=== PATIENT | female | born 1945 | race Caucasian/White ===

== ENCOUNTER 2018-07-15 10:11 | Inpatient (IN) | END 2018-07-16 14:10 | DRG 470 ==

== ENCOUNTER 2018-12-14 05:45 | Observation (INO) | payer MEDICARE, OTHER ==
[2018-12-14] VITALS (23 sets, daily range): BP systolic 118–163; BP diastolic 54–74; PULSE 52–71; RESP 12–18
[~2018-12-14] VITALS: Ht 152.4 cm; Wt 73.8 kg
[~2018-12-14 05:45] MED LIST: LOSA50TA14 PO
[2018-12-14] MEDS ORDERED: LANSOPRAZOLE 30 MG CAP PO ONE (06:00)
[2018-12-14] MEDS ORDERED: ACETAMINOPHEN 500 MG TAB PO ONE (06:00)
[2018-12-14] MEDS ORDERED: TRANEXAMIC ACID 1GM/100ML(PMX) 100 ML INTRA-OP X1 IVPB ONE (06:00)
[2018-12-14] MEDS ORDERED: DEXAMETHASONE 4 MG/ML 1 ML INJ IV ONE (06:00)
[2018-12-14] MEDS ORDERED: ONDANSETRON 4 MG INJ IV ONE (06:00)
[2018-12-14] MEDS ORDERED: TRANEXAMIC ACID 1GM/100ML(PMX) 100 ML PRE-OP X1 IVPB ONE (06:00)
[2018-12-14] MEDS ORDERED: CEFAZOLIN 1 GM/50 ML (PMX) 50 ML IVPB ONE (06:00)
[2018-12-14] MEDS ORDERED: oxyCODONE (CR) 10 MG TAB [oxyCONTIN] PO ONE (06:00)
[2018-12-14] MEDS ORDERED: LACTATED RINGER'S 1,000 ML IV* SCH (06:00)
--- NOTE | 2018-12-14 06:46 | HPN ---
Date/Time of Note Date/Time of Note DATE: 12/14/18 TIME: 06:46 Interval H&P Admission Note Pt. seen H&P reviewed: No system changes BERNARD LINARES MD December 14, 2018 06:46
[2018-12-14] MEDS ORDERED: POLYMYXIN B 500000 UNIT INJ ONE (06:54)
[2018-12-14] MEDS ORDERED: LIDOCAINE 2% (SDV) 5 ML INJ ONE (07:00)
[2018-12-14] MEDS ORDERED: HIP PAIN COCKTAIL VANCO INJ SCH ×7 (07:00)
[2018-12-14] MEDS ORDERED: BACITRACIN 50000 UNITS INJ ONE (07:08)
--- NOTE | 2018-12-14 07:16 | PREAC ---
Date/Time of Note Date/Time of Note DATE: 12/14/18 TIME: 07:14 Anesthesia Eval and Record Evaluation Time Pre-Procedure Interview DATE: 12/14/18 TIME: 07:14 Age 73 Sex female NPO: 8 hrs Preoperative diagnosis right knee osteoarthritis Planned procedure right total knee replacement Past Medical History Past Medical History: Includes Cardio: HTN Musculoskeletal: Osteoarthritis Surgery & Anesthesia Issues No known issue Meds Anticoagulation: No Beta Alice within 24 hr: No Reason Beta Alice not given: Pt. not on B-Alice Reported Medications Losartan Potassium* (Losartan Potassium*) 50 Mg Tablet, 50 MG PO DAILY, TAB 07/13/18 Current Medications Ropivacaine/ Morphine Sulfate/ Clonidine/ Epinephrine/ Ketorolac Tromethamine/ Vancomycin HCl/ Sodium Chloride INTRA-OP INJ ; Start 12/14/18 at 07:00 Lactated Ringer's 1,000 ml @ 125 mls/hr Q8H IV* Last administered on 12/14/18at 06:59; Admin Dose 125 MLS/HR; Start 12/14/18 at 06:00; Stop 12/14/18 at 13:59 Acetaminophen 100 ml @ 400 mls/hr PRE-OP ONCE IVPB ; Start 12/14/18 at 07:30; Stop 12/14/18 at 07:44 Meds reviewed: Yes Allergies Coded Allergies: No Known Allergy (Unverified , 12/14/18) Allergies Reviewed: Yes Labs/Studies Labs Reviewed: Reviewed by anesthesiologist test: N/A Studies: ECG, CXR Pre-procedure Exam Airway: Adequate mouth opening, Adequate thyromental dist Mallampati: Mallampati II Teeth: Normal Lung: Normal Heart: Normal ASA Physical Status ASA physical status: 2 Emergency: None Planned Anesthetic Neuraxial: Spinal Planned Pain Management Parenteral pain med Pre-operative Attestations Prior to commencing anesthesia and surgery, the patient was re-evaluated, there was verification of: *The patient's identity *The results of appropriate recent lab work and preoperative vital signs *The above evaluation not changing prior to induction *Anesthetic plan, risk benefits, alternative and complications discussed with patient/family; questions answered; patient/family understands, accepts and wishes to proceed. JAY LOVETT December 14, 2018 07:15
[2018-12-14] MEDS ORDERED: ACETAMINOPHEN 1000MG/100ML IV 100 ML IVPB ONE (07:30)
[2018-12-14] MEDS ORDERED: MIDAZOLAM 1 MG/ML 2 ML INJ ONE (07:30)
[2018-12-14] MEDS ORDERED: TRANEXAMIC ACID 1GM/100ML(PMX) 100 ML ONE ×2 (07:44→08:07)
[2018-12-14] MEDS ORDERED: PROPOFOL 20 ML ONE (08:07)
[2018-12-14] MEDS ORDERED: ROCURONIUM 50 MG INJ ONE (08:07)
[2018-12-14] MEDS ORDERED: ONDANSETRON 4 MG INJ ONE (08:08)
[2018-12-14] MEDS ORDERED: DEXAMETHASONE 4 MG/ML 5 ML INJ ONE (08:08)
[2018-12-14] MEDS ORDERED: NEOSTIGMINE 3 MG/3 ML SYRINGE ONE (09:19)
[2018-12-14] MEDS ORDERED: GLYCOPYRROLATE 0.4 MG INJ ONE (09:19)
--- NOTE | 2018-12-14 09:43 | SIPON ---
Date/Time of Note Date/Time of Note DATE: 12/14/18 TIME: 09:42 Operative Report Preoperative Diagnosis Right Knee Osteoarthritis Postoperative Diagnosis Same Operation/Procedure Performed Right Total Knee Arthroplasty Surgeon Sherif Linares MD visitor use assistant Josh Salazar Second assist: EDWIGE MCDONALD Anesthesia: spinal, epidural Estimated blood loss: 250 - 300 ml's Transfusion Required none Specimen bone Grafts/Implants none Complications none SHERIF LINARES MD December 14, 2018 09:43
--- NOTE | 2018-12-14 09:49 | OPR ---
Date/Time of Note Date/Time of Note DATE: 12/14/18 TIME: 09:46 Operative Report Free Text/Dictation DATE OF OPERATION: December 14, 2018 SURGEON: Bernard Linares MD STITCH BURNISHER: Josh CALVILLO STITCH BURNISHER: JESSICA Melo PREOPERATIVE DIAGNOSIS: Right knee osteoarthritis. POSTOPERATIVE DIAGNOSIS: Right knee osteoarthritis. PROCEDURES PERFORMED: Right total knee arthroplasty, CPT code 23752. ANESTHESIOLOGIST: Dr. Harden ANESTHESIA: Spinal. ESTIMATED BLOOD LOSS: 300 mL. COMPLICATIONS: None. SPECIMENS: Resected bone. DISPOSITION: PACU in stable condition. TOURNIQUET TIME: 60 minutes at 250 mmHg. IMPLANT USED: [employer]hew size 3 Awa tibial baseplate, size 4 posterior stabilized Oxinium femur, size 12 high flexion polyethylene, size 32 mm patella. INDICATION FOR PROCEDURE: This is an 73-year-old female with end-stage osteoarthritis of the right knee who had failed nonoperative management. Risks, benefits, alternatives of surgical intervention were discussed with the patient and informed consent was obtained. The risks of surgery include but are not limited to infection, deep venous thrombosis, pulmonary embolism, damage to nerves and blood vessels, numbness around incision site, stiffness of knee, need for total knee manipulation under anesthesia, need for blood transfuion, heart attack, stroke, risks associated with anesthesia, implant loosening, wear of prosthesis, need for revision surgery, and . DESCRIPTION OF PROCEDURE: The patient was met in the preoperative suite. The correct operative site was confirmed and marked. The patient was then brought into operating room. After induction of anesthesia, the patient was placed in the supine position on the operating room table. A tourniquet was applied to right upper thigh. The right lower extremity was prepped and draped in the usual sterile fashion. Before starting, a timeout was taken to identify the correct operative site and confirm preoperative antibiotics consisting of 1 g of IV Ancef, along with 1 g of tranexamic acid were administered. At this point, the right leg was elevated and exsanguinated with an Esmarch and tourniquet was then insufflated for the above noted time. A midline incision was made and median parapatellar arthrotomy was then completed. The lateral patellar retinacular ligaments were released. A sleeve of tissue was released from the medial proximal tibia. The cruciate ligaments and the menisci were then excised. At this point, the custom distal femur cutting block was then pinned and 9.5 mm was resected from the distal femur. The 4-in-1 cutting block, size 4 was then placed. An sharan wing was used to confirm that notching of the anterior cortex of the femur would not occur. The anterior and posterior condylar cuts were completed followed by the anterior and posterior chamfer cuts. The osteophytes were then removed with a rongeur. At this point, the tibia was subluxed anteriorly. Appropriate retractors were placed. The custom tibial cutting block was then pinned. The drop was used to ensure the correct alignment. Approximately 11 mm was resected off the lateral tibial plateau and 9 mm off the medial tibial plateau. Osteophytes were then removed. At this point, the flexion extension gaps were checked with a 9 mm gap gas meter checker and noted to be loose in both. Next, trial 4 standard femur was then pinned and the box cut was then completed. The tibia was then subluxed anteriorly and measured to size 3. The tibial tray was then pinned and a keel was then punched. The trial components were placed with a 12 mm polyethylene and noted to have full extension and greater than 120 degrees of flexion. The patella was then subluxed laterally and sized to 19 mm. Approximately, 5 mm was resected from the patella. The patellar was sized to 32 mm. The button was placed and noted to have excellent patellar tracking. The trial components were removed. All bony surfaces were pulse lavaged and dried. The appropriate size components were then cemented and the knee was held in extension with a 12 mm trial polyethylene until the cement cured. Once the cement had cured, the trial polyethylene was removed and the appropriate size polyethylene was then placed. The tranexamic acid was redosed. The cocktail was then injected. The extensor mechanism was closed using #1 Stratafix and the subcutaneous tissue with 2-0 Vicryl and the skin with 4-0 Monocryl. Steri-Strips were applied along with a sterile dressing. There were no complications. The patient was transferred to PACU in stable condition. POSTOPERATIVE CARE: The patient will be weightbearing as tolerated. The patient will work with physical therapy, and will receive two additional doses of IV antibiotics along with aspirin 81 mg p.o. b.i.d. for 6 weeks. Upon discharge, patient will follow up in my office within 2 weeks postoperatively. BERNARD LIANRES MD December 14, 2018 09:49
--- NOTE | 2018-12-14 09:58 | PAC ---
Date/Time of Note Date/Time of Note DATE: 12/14/18 TIME: 09:57 Post-Anesthesia Notes Post-Anesthesia Note Last documented vital signs temp 97.9 bp 115/67 p 76 r 15 Activity: WNL Respiratory function: WNL Cardiovascular function: WNL Mental status: Baseline Pain reasonably controlled: Yes Hydration appropriate: Yes Nausea/Vomiting absent: Yes JAY LOVETT December 14, 2018 09:58
[2018-12-14] MEDS ORDERED: DIPHENHYDRAMINE 50 MG INJ IV PRN (10:00)
[2018-12-14] MEDS ORDERED: DOCUSATE SODIUM 100 MG CAP PO ONE (10:00)
[2018-12-14] MEDS ORDERED: NALOXONE (0.4 MG/ML) INJ IV PRN (10:00)
[2018-12-14] MEDS ORDERED: MEPERIDINE 25 MG INJ IV PRN (10:00)
[2018-12-14] MEDS ORDERED: NACL 0.9% 3 ML SYG IV SCH (10:00)
[2018-12-14] MEDS ORDERED: KETOROLAC 30 MG INJ IV PRN (10:00)
[2018-12-14] MEDS ORDERED: ALBUTEROL 0.083% (NEB) 2.5 MG/3 ML AMP HHN PRN (10:00)
[2018-12-14] MEDS ORDERED: OXYCODONE/ACETAMINOPHEN (5/325) TAB PO PRN ×2 (10:00)
[2018-12-14] MEDS ORDERED: LABETALOL HCL 20MG INJ IV PRN (10:00)
[2018-12-14] MEDS ORDERED: HYDROmorphONE 1 MG/5 ML IV SYRINGE IV PRN ×3 (10:00)
[2018-12-14] MEDS ORDERED: EPHEDrine SULFATE 50 MG/5 ML SYG IV PRN (10:00)
[2018-12-14] MEDS ORDERED: hydrALAzine 20 MG INJ IV PRN ×2 (10:00→16:00)
[2018-12-14] MEDS ORDERED: FENTAnyl 50 MCG/ML VIAL IV PRN ×3 (10:00)
[2018-12-14] MEDS ORDERED: ONDANSETRON 4 MG INJ IV PRN (10:00)
[2018-12-14] MEDS ORDERED: METOCLOPRAMIDE 10 MG INJ IV PRN (10:00)
[2018-12-14] MEDS: ONDANSETRON 4 MG INJ IV SCH ×3 (10:16→22:00)
[2018-12-14] MEDS: CEFAZOLIN 2 GM/50 ML (PMX) 50 ML IVPB SCH ×2 (10:17→17:34)
[2018-12-14] MEDS: oxyCODONE 5 MG TAB PO PRN ×2 (12:10→22:18)
[2018-12-14] MEDS: GABAPENTIN 100 MG CAP PO SCH ×2 (12:12→20:20)
--- NOTE | 2018-12-14 15:31 | CONS ---
Assessment/Plan Assessment/Plan Hospital Course (Demo Recall) 73-year-old female with comorbidities including obesity and hypertension with underlying right knee osteoarthritis who had an elective total right knee arthroplasty and is being admitted to inpatient setting. 1. Right knee osteoarthritis -Status post right total knee arthroplasty on 12/14/2018. -Continue pain control -Weightbearing as per orthopedic surgery. -Anticoagulation as per orthopedic surgery. -Physical therapy as per orthopedic surgery. 2. Essential hypertension. -Resume antihypertensives. 3. Obesity. -BMI more than 31. -Weight reduction will be advised. Diet: Regular diet. CODE STATUS: Full code. DVT prophylaxis: As per orthopedic surgery. Additional diagnostic and therapeutic orders will be added as clinically indicated. We will continue to follow the patient along with you. Thank you for the consult. The patient was seen in collaboration with Dr. Zavala. Consultation Date/Type/Reason Admit Date/Time December 14, 2018 at 05:45 Date of Consultation: December 14, 2018 Type of Consult Medical Reason for Consultation Medical management. Requesting Provider: BERNARD LINARES MD Date/Time of Note DATE: 12/14/18 TIME: 15:31 Hx of Present Illness This is a 73-year-old female with past medical history of hypertension and osteoarthritis. The patient was brought to [facility] for elective surgery for her right knee osteoarthritis. The patient underwent a right total knee arthroplasty and the patient is being admitted to inpatient setting for further monitoring. Hospitalist consult was called for medical management. Constitutional: no complaints Eyes: no complaints ENT: no complaints Respiratory: no complaints Cardiovascular: no complaints Gastrointestinal: no complaints Genitourinary: no complaints Musculoskeletal: bone/joint pain Skin: no complaints Neurologic: no complaints Endocrine: no complaints Lymphatic: no complaints Psychological: no complaints Immunologic: no complaints Past Medical History Medical History: hypertension Home Meds Reported Medications Losartan Potassium* (Losartan Potassium*) 50 Mg Tablet, 50 MG PO DAILY, TAB 07/13/18 Medications Current Medications IV Flush (NS 3 ml) 3 ml PER PROTOCOL IV ; Start 12/14/18 at 10:00 Oxycodone HCl (Roxicodone) 5 mg Q4H PRN PO .PAIN Last administered on 12/14/18at 12:10; Admin Dose 5 MG; Start 12/14/18 at 10:00 Ketorolac Tromethamine (Toradol) 15 mg Q6H PRN IV .PAIN; Start 12/14/18 at 10:00 Ondansetron HCl (Zofran Inj) 4 mg Q6H IV Last administered on 12/14/18at 10:16; Admin Dose 4 MG; Start 12/14/18 at 10:00; Stop 12/15/18 at 04:01 Cefazolin Sodium/ Dextrose 50 ml @ 100 mls/hr Q8H IVPB Last administered on 12/14/18at 10:17; Admin Dose 100 MLS/HR; Start 12/14/18 at 10:00; Stop 12/15/18 at 02:29 Celecoxib (Celebrex) 100 mg BID PO ; Start 12/15/18 at 09:00 Gabapentin (Neurontin) 100 mg TID PO Last administered on 12/14/18at 12:12; Admin Dose 100 MG; Start 12/14/18 at 13:00 Pantoprazole (Protonix Tab) 40 mg DAILY@06 PO ; Start 12/16/18 at 06:00 Naloxone HCl (Narcan) 0.2 mg Q2M PRN IV .RESP RATE; Start 12/14/18 at 10:00 Aspirin (Halfprin) 81 mg BID PO ; Start 12/15/18 at 09:00 Hydromorphone HCl (Dilaudid) 0.2 mg PACU PRN IV MILD PAIN 1-3; Start 12/14/18 at 10:00; Stop 12/14/18 at 18:00 Hydromorphone HCl (Dilaudid) 0.4 mg PACU PRN IV MOD PAIN 4-6; Start 12/14/18 at 10:00; Stop 12/14/18 at 18:00 Hydromorphone HCl (Dilaudid) 0.6 mg PACU PRN IV SEVERE PAIN 7-10; Start 12/14/18 at 10:00; Stop 12/14/18 at 18:00 Fentanyl (Sublimaze) 25 mcg PACU ORDER PRN IV MILD PAIN 1-3; Start 12/14/18 at 10:00; Stop 12/14/18 at 18:00 Fentanyl (Sublimaze) 50 mcg PACU ORDER PRN IV MOD PAIN 4-6; Start 12/14/18 at 10:00; Stop 12/14/18 at 18:00 Fentanyl (Sublimaze) 75 mcg PACU ORDER PRN IV SEVERE PAIN 7-10; Start 12/14/18 at 10:00; Stop 12/14/18 at 18:00 Ketorolac Tromethamine (Toradol) 30 mg PACU ORDER PRN IV FOR PAIN AFTER IV NARCOTIC MED; Start 12/14/18 at 10:00; Stop 12/14/18 at 18:00 Oxycodone/ Acetaminophen (Percocet (5/ 325)) 1 tab PACU ORDER PRN PO .PAIN 1-5; Start 12/14/18 at 10:00; Stop 12/14/18 at 18:00 Oxycodone/ Acetaminophen (Percocet (5/ 325)) 2 tab PACU ORDER PRN PO .PAIN 6-10; Start 12/14/18 at 10:00; Stop 12/14/18 at 18:00 Ondansetron HCl (Zofran Inj) 4 mg PACU ORDER PRN IV NAUSEA/VOMITING; Start 12/14/18 at 10:00; Stop 12/14/18 at 18:00 Metoclopramide HCl (Reglan) 10 mg PACU ORDER PRN IV NAUSEA/VOMITING; Start 12/14/18 at 10:00; Stop 12/14/18 at 18:00 Labetalol HCl (Labetalol) 5 mg PACU ORDER PRN IV HIGH BLOOD PRESSURE; Start 12/14/18 at 10:00; Stop 12/14/18 at 18:00 Hydralazine HCl (Apresoline) 5 mg PACU ORDER PRN IV HIGH BLOOD PRESSURE; Start 12/14/18 at 10:00; Stop 12/14/18 at 18:00 Ephedrine Sulfate 5 mg PACU ORDER PRN IV BLOOD PRESSURE SUPPORT; Start 12/14/18 at 10:00; Stop 12/14/18 at 18:00 Albuterol (Proventil 0.083% (Neb)) 2.5 mg PACU ORDER PRN HHN .WHEEZING; Start 12/14/18 at 10:00; Stop 12/14/18 at 18:00 Meperidine HCl (Demerol) 25 mg PACU ORDER PRN IV .RIGORS; Start 12/14/18 at 10:00; Stop 12/14/18 at 18:00 Diphenhydramine HCl (Benadryl) 25 mg PACU ORDER PRN IV .PRURITUS; Start 12/14/18 at 10:00; Stop 12/14/18 at 18:00 Allergies: Coded Allergies: No Known Allergy (Unverified , 12/14/18) Past Surgical History Past Surgical Hx: other (Left total knee arthroplasty) Social History The patient lives at home with her family. Alcohol Use: none Smoking Status: Former smoker Drug Use: none Exam/Review of Systems Exam Vitals Vital Signs Date Temp Pulse Resp B/P (MAP) Pulse Ox O2 O2 Flow FiO2 Time Delivery Rate 12/14/18 98.3 59 18 137/69 Room Air 14:15 (91) 12/14/18 97 11:09 Exam General: Obese, 73 year-old female lying in bed in no apparent distress. HEENT: Normocephalic, atraumatic. Eyes: Anicteric sclerae, conjunctivae clear. ENT: Nasal septum midline, oral mucosa moist. Neck supple. Respiratory: Bilaterally diminished breath sounds. No use of accessory muscles of respiration. No adventitious breath sounds. Cardiovascular: S1, S2 heard. Regular rate and rhythm. Abdomen: Soft, nontender, and nondistended. Bowel sounds positive in all 4 quad rants. Genitourinary: Deferred. Extremities: No cyanosis, no clubbing, no edema. Right knee surgical dressing. Peripheral pulses palpable. Neurologic: Cranial nerves II through XII grossly intact. The patient is awake, alert, and oriented. Skin: Normal skin turgor. No skin rashes. Medications Medication Current Medications IV Flush (NS 3 ml) 3 ml PER PROTOCOL IV ; Start 12/14/18 at 10:00 Oxycodone HCl (Roxicodone) 5 mg Q4H PRN PO .PAIN Last administered on 12/14/18at 12:10; Admin Dose 5 MG; Start 12/14/18 at 10:00 Ketorolac Tromethamine (Toradol) 15 mg Q6H PRN IV .PAIN; Start 12/14/18 at 10:00 Ondansetron HCl (Zofran Inj) 4 mg Q6H IV Last administered on 12/14/18at 10:16; Admin Dose 4 MG; Start 12/14/18 at 10:00; Stop 12/15/18 at 04:01 Cefazolin Sodium/ Dextrose 50 ml @ 100 mls/hr Q8H IVPB Last administered on 12/14/18at 10:17; Admin Dose 100 MLS/HR; Start 12/14/18 at 10:00; Stop 12/15/18 at 02:29 Celecoxib (Celebrex) 100 mg BID PO ; Start 12/15/18 at 09:00 Gabapentin (Neurontin) 100 mg TID PO Last administered on 12/14/18at 12:12; Admin Dose 100 MG; Start 12/14/18 at 13:00 Pantoprazole (Protonix Tab) 40 mg DAILY@06 PO ; Start 12/16/18 at 06:00 Naloxone HCl (Narcan) 0.2 mg Q2M PRN IV .RESP RATE; Start 12/14/18 at 10:00 Aspirin (Halfprin) 81 mg BID PO ; Start 12/15/18 at 09:00 Hydromorphone HCl (Dilaudid) 0.2 mg PACU PRN IV MILD PAIN 1-3; Start 12/14/18 at 10:00; Stop 12/14/18 at 18:00 Hydromorphone HCl (Dilaudid) 0.4 mg PACU PRN IV MOD PAIN 4-6; Start 12/14/18 at 10:00; Stop 12/14/18 at 18:00 Hydromorphone HCl (Dilaudid) 0.6 mg PACU PRN IV SEVERE PAIN 7-10; Start 12/14/18 at 10:00; Stop 12/14/18 at 18:00 Fentanyl (Sublimaze) 25 mcg PACU ORDER PRN IV MILD PAIN 1-3; Start 12/14/18 at 10:00; Stop 12/14/18 at 18:00 Fentanyl (Sublimaze) 50 mcg PACU ORDER PRN IV MOD PAIN 4-6; Start 12/14/18 at 10:00; Stop 12/14/18 at 18:00 Fentanyl (Sublimaze) 75 mcg PACU ORDER PRN IV SEVERE PAIN 7-10; Start 12/14/18 at 10:00; Stop 12/14/18 at 18:00 Ketorolac Tromethamine (Toradol) 30 mg PACU ORDER PRN IV FOR PAIN AFTER IV NARCOTIC MED; Start 12/14/18 at 10:00; Stop 12/14/18 at 18:00 Oxycodone/ Acetaminophen (Percocet (5/ 325)) 1 tab PACU ORDER PRN PO .PAIN 1-5; Start 12/14/18 at 10:00; Stop 12/14/18 at 18:00 Oxycodone/ Acetaminophen (Percocet (5/ 325)) 2 tab PACU ORDER PRN PO .PAIN 6-10; Start 12/14/18 at 10:00; Stop 12/14/18 at 18:00 Ondansetron HCl (Zofran Inj) 4 mg PACU ORDER PRN IV NAUSEA/VOMITING; Start 12/14/18 at 10:00; Stop 12/14/18 at 18:00 Metoclopramide HCl (Reglan) 10 mg PACU ORDER PRN IV NAUSEA/VOMITING; Start 12/14/18 at 10:00; Stop 12/14/18 at 18:00 Labetalol HCl (Labetalol) 5 mg PACU ORDER PRN IV HIGH BLOOD PRESSURE; Start at 10:00; Stop 12/14/18 at 18:00 Hydralazine HCl (Apresoline) 5 mg PACU ORDER PRN IV HIGH BLOOD PRESSURE; Start 12/14/18 at 10:00; Stop 12/14/18 at 18:00 Ephedrine Sulfate 5 mg PACU ORDER PRN IV BLOOD PRESSURE SUPPORT; Start 12/14/18 at 10:00; Stop 12/14/18 at 18:00 Albuterol (Proventil 0.083% (Neb)) 2.5 mg PACU ORDER PRN HHN .WHEEZING; Start 12/14/18 at 10:00; Stop 12/14/18 at 18:00 Meperidine HCl (Demerol) 25 mg PACU ORDER PRN IV .RIGORS; Start 12/14/18 at 10:00; Stop 12/14/18 at 18:00 Diphenhydramine HCl (Benadryl) 25 mg PACU ORDER PRN IV .PRURITUS; Start 12/14/18 at 10:00; Stop 12/14/18 at 18:00 ROBERT DAMON NP December 14, 2018 15:31
[2018-12-14] MEDS: KETOROLAC 15 MG INJ IV PRN (17:34)
[2018-12-15] MEDS: CEFAZOLIN 2 GM/50 ML (PMX) 50 ML IVPB SCH (01:53)
[2018-12-15 02:44] VITALS: BP 165/72; PULSE 59; RESP 16
[2018-12-15] MEDS: KETOROLAC 15 MG INJ IV PRN ×2 (02:45→09:29)
[2018-12-15 03:00] VITALS: BP 157/72; PULSE 63; RESP 16
[2018-12-15] MEDS: ONDANSETRON 4 MG INJ IV SCH (03:43)
[2018-12-15 07:27] VITALS: BP 175/72; PULSE 67; RESP 18
[2018-12-15] MEDS: GABAPENTIN 100 MG CAP PO SCH ×2 (08:38→13:53)
[2018-12-15] MEDS ORDERED: LOSARTAN 50 MG TAB PO SCH (09:00)
[2018-12-15] MEDS ORDERED: CELECOXIB 100 MG CAP PO SCH (09:00)
[2018-12-15] MEDS ORDERED: ASPIRIN (EC) 81 MG TAB PO SCH (09:00)
[2018-12-15 09:22] VITALS: BP 129/62; PULSE 85; RESP 18
--- NOTE | 2018-12-15 10:00 | CONS ---
Assessment/Plan Assessment/Plan Hospital Course (Demo Recall) SUBJECTIVE: Right knee pain well controlled. OBJECTIVE: Physical Exam General: Obese, 73 year-old female lying in bed in no apparent distress. HEENT: Normocephalic, atraumatic. Eyes: Anicteric sclerae, conjunctivae clear. ENT: Nasal septum midline, oral mucosa moist. Neck supple. Respiratory: Bilaterally diminished breath sounds. No use of accessory muscles of respiration. No adventitious breath sounds. Cardiovascular: S1, S2 heard. Regular rate and rhythm. Abdomen: Soft, nontender, and nondistended. Bowel sounds positive in all 4 quadrants. Genitourinary: Deferred. Extremities: No cyanosis, no clubbing, no edema. Right knee surgical dressing. Peripheral pulses palpable. Neurologic: Cranial nerves II through XII grossly intact. The patient is awake, alert, and oriented. Skin: Normal skin turgor. No skin rashes. Labs & Vitals per chart ASSESSMENT & PLAN 73-year-old female with comorbidities including obesity and hypertension with un derlying right knee osteoarthritis who had an elective total right knee arthroplasty and was admitted to inpatient setting. 1. Right knee osteoarthritis -Status post right total knee arthroplasty on 12/14/2018. -Continue pain control -Weightbearing as per orthopedic surgery. -Anticoagulation as per orthopedic surgery. -Physical therapy as per orthopedic surgery. 2. Essential hypertension. -Continue antihypertensives. 3. Obesity. -BMI more than 31. -Weight reduction will be advised. 4. Leukocytosis. -Probably reactive -Remains afebrile. -Monitor. 5. Normocytic anemia. -Monitor H&H closely. Diet: Regular diet. CODE STATUS: Full code. DVT prophylaxis: As per orthopedic surgery. Additional diagnostic and therapeutic orders will be added as clinically indicated. We will continue to follow the patient along with you. Thank you for the consult. The patient was seen in collaboration with Dr. Zavala. Consultation Date/Type/Reason Admit Date/Time December 14, 2018 at 05:45 Initial Consult Date 12/14/18 Type of Consult Medical Reason for Consultation Medical management. Requesting Provider: BERNARD LINARES MD Date/Time of Note DATE: 12/15/18 TIME: 09:59 Exam/Review of Systems Exam Vitals Vital Signs Date Temp Pulse Resp B/P (MAP) Pulse Ox O2 O2 Flow FiO2 Time Delivery Rate 12/15/18 85 18 129/62 09:22 (84) 12/15/18 98.3 99 Room Air 07:27 Intake and Output 12/14/18 12/14/18 12/15/18 1515:00 23:00 07:00 IntakeIntake Total 1900 ml 1050 ml 50 ml OutputOutput Total 40 ml BalanceBalance 1860 ml 1050 ml 50 ml Results Result Diagram: 12/15/18 0444 12/15/18 0444 Results 24hrs Laboratory Tests Test 12/15/18 04:44 12/15/18 07:13 White Blood Count 14.0 #H Red Blood Count 3.81 L Hemoglobin 11.0 L Hematocrit 33.8 L Mean Corpuscular Volume 88.7 Mean Corpuscular Hemoglobin 28.9 L Mean Corpuscular Hemoglobin Concent 32.5 Red Cell Distribution Width 14.5 Platelet Count 193 Mean Platelet Volume 9.9 Immature Granulocytes % 0.600 H Neutrophils % 83.7 H Lymphocytes % 9.7 L Monocytes % 5.9 Eosinophils % 0.0 Basophils % 0.1 Nucleated Red Blood Cells % 0.0 Immature Granulocytes # 0.090 H Neutrophils # 11.7 H Lymphocytes # 1.4 Monocytes # 0.8 Eosinophils # 0.0 Basophils # 0.0 Nucleated Red Blood Cells # 0.0 Sodium Level 143 Potassium Level 4.6 Chloride Level 109 Carbon Dioxide Level 27 Anion Gap 7 Blood Urea Nitrogen 23 H Creatinine 0.65 Est Glomerular Filtrat Rate mL/min Glucose Level 119 Calcium Level 9.5 Lab Scanned Report REFERENCE LAB Medications Medication Current Medications IV Flush (NS 3 ml) 3 ml PER PROTOCOL IV ; Start 12/14/18 at 10:00 Oxycodone HCl (Roxicodone) 5 mg Q4H PRN PO .PAIN Last administered on 12/14/18at 22:18; Admin Dose 5 MG; Start 12/14/18 at 10:00 Ketorolac Tromethamine (Toradol) 15 mg Q6H PRN IV .PAIN Last administered on 12/15/18at 09:29; Admin Dose 15 MG; Start 12/14/18 at 10:00 Celecoxib (Celebrex) 100 mg BID PO Last administered on 12/15/18at 08:39; Admin Dose 100 MG; Start 12/15/18 at 09:00 Gabapentin (Neurontin) 100 mg TID PO Last administered on 12/15/18 08:38; Admin Dose 100 MG; Start 12/14/18 at 13:00 Pantoprazole (Protonix Tab) 40 mg DAILY@06 PO ; Start 12/16/18 at 06:00 Naloxone HCl (Narcan) 0.2 mg Q2M PRN IV .RESP RATE; Start 12/14/18 at 10:00 Aspirin (Halfprin) 81 mg BID PO Last administered on 12/15/18at 08:39; Admin Dose 81 MG; Start 12/15/18 at 09:00 Losartan Potassium (Cozaar) 50 mg DAILY PO Last administered on 12/15/18at 08:38; Admin Dose 50 MG; Start 12/15/18 at 09:00 Hydralazine HCl (Apresoline) 10 mg Q6H PRN IV SBP>160 Last administered on 12/15/18at 08:37; Admin Dose 10 MG; Start 12/14/18 at 16:00 ROBERT DAMON NP December 15, 2018 10:00
[2018-12-15 14:56] VITALS: BP 140/69; PULSE 77; RESP 18
[2018-12-16] MEDS ORDERED: PANTOPRAZOLE (EC) 40 MG TAB PO SCH (06:00)
--- NOTE | 2018-12-21 21:21 | DS ---
DATE OF ADMISSION: 12/14/2018 DATE OF DISCHARGE: 12/15/2018 HOSPITAL COURSE: Ms. Steele underwent a right total knee arthroplasty on 12/14/2018. There w ere no complications during the surgery. She was subsequently admitted to the medical floor. She re ceived 2 additional doses of postoperative antibiotics along with DVT prophylaxis. She worked with [employer]. Upon passing therapy, she was discharged home in stable condition on 12/15/2018. T here were no complications during this hospital stay. She is to follow up within 10 to 14 days posto peratively. Dictated By: BERNARD SOSA/NTS Conf#: [id number] DID#: [id number]
== END 2018-12-15 16:37 | disposition home health service (06) ==
LOC: REC 05:45 → INTOOBSV 05:45 → MS1 11:24
PROVIDERS: ADMIT Orthopaedic Surgery Adult Reconstructive Orthopaedic Surgery; ATTEND Orthopaedic Surgery Adult Reconstructive Orthopaedic Surgery
DX: M17.11 Unilateral primary osteoarthritis, right knee (principal); I10 Essential (primary) hypertension; E66.9 Obesity, unspecified; Z68.31 Body mass index [BMI] 31.0-31.9, adult; D72.829 Elevated white blood cell count, unspecified; D64.9 Anemia, unspecified
CPT/HCPCS: 27447; 73560; 80048; 85025; 87081; 88304; 88311; 97116; 97161; 97530; C1713; C1776; G0378; J0131; J0171; J0360; J0690; J0735; J1100; J1885; J2250; J2274; J2405; J2710; J2795; J3370; J7120; 99217